=== PATIENT | male | born 1965 | race Caucasian/White ===

== ENCOUNTER 2022-12-09 10:43 | Outpatient (CLI) | payer MEDICARE | END 2022-12-09 10:44 | disposition home or self-care (01) | LOC: SCSMRI 10:43 | PROVIDERS: ATTEND Nurse Anesthetist, Certified Registered | DX: M47.26 Other spondylosis with radiculopathy, lumbar region (principal); M43.16 Spondylolisthesis, lumbar region; M48.061 Spinal stenosis, lumbar region without neurogenic claudication | CPT/HCPCS: 72148 ==

== ENCOUNTER 2024-02-02 09:00 | Inpatient (IN) | payer MEDICARE ==
[2024-03-01] MEDS ORDERED: Albumin 5% 500 ML ONE (06:05)
[2024-03-01] MEDS ORDERED: Vancomycin 1 GM VIAL ONE (06:08)
[2024-03-01] MEDS ORDERED: EPINEPHrine 1 MG/ML VIAL ONE (06:08)
[2024-03-01] MEDS ORDERED: Bupivacaine PF 0.5% 30 ML VIAL ONE (06:09)
[2024-03-01] MEDS ORDERED: Thrombin 5000 UNITS/5 ML VIAL ONE (06:09)
[2024-03-01] MEDS ORDERED: Fentanyl 250 MCG/5 ML VIAL ONE (06:19)
[2024-03-01] MEDS ORDERED: KETAMINE 100 MG/ML (5ML VIAL) ONE (06:19)
[2024-03-01] MEDS ORDERED: Rocuronium Bromide 10 MG/ML (10ML VIAL) ONE (06:19)
[2024-03-01] MEDS ORDERED: PROPOFOL 20 ML ONE (06:19)
[2024-03-01] MEDS ORDERED: Lidocaine 1% PF 5 ML VIAL ONE (06:19)
[2024-03-01] MEDS ORDERED: Ondansetron PF 4 MG/2 ML Vial IVP PRN (06:40)
[2024-03-01] MEDS ORDERED: diphenhydrAMINE 50 MG/ML VIAL IVP PRN (06:40)
[2024-03-01] MEDS ORDERED: CEFAZOLIN 2 GM VIAL ONE (06:50)
[2024-03-01] MEDS ORDERED: Dexamethasone 20 MG/5 ML VIAL ONE (08:04)
[2024-03-01] MEDS ORDERED: Vecuronium 10 MG VIAL ONE ×2 (08:12→09:51)
[2024-03-01] MEDS ORDERED: PHENYLEPHRINE-NS 100 MCG/ML 10 ML SYRINGE ONE (08:30)
[2024-03-01] MEDS ORDERED: ePHEDrine Sulfate 50 MG/10 ML VIAL ONE (08:42)
[2024-03-01] MEDS ORDERED: CEFAZOLIN 1 GM VIAL ONE (10:24)
[2024-03-01] MEDS ORDERED: Ondansetron PF 4 MG/2 ML Vial ONE (12:00)
[2024-03-01] MEDS ORDERED: Promethazine HCl 25 MG/ML VIAL IM PRN (12:05)
[2024-03-01] MEDS ORDERED: HYDROmorphone 2 MG/ML VIAL SLOW IVP PRN (12:05)
[2024-03-01] MEDS ORDERED: PACU-Morphine 4MG/ML VIAL SLOW IVP PRN (12:05)
[2024-03-01] MEDS ORDERED: Ondansetron HCl/PF 4 MG/2 ML Vial IVP PRN (12:05)
[2024-03-01] MEDS ORDERED: Morphine Sulfate 2 MG/ML SYRINGE SLOW IVP PRN (12:05)
[2024-03-01] MEDS ORDERED: SUGAMMADEX SODIUM 200 MG/2 ML VIAL ONE (12:14)
[2024-03-01] MEDS ORDERED: Labetalol HCl 100 MG/20 ML VIAL ONE (12:21)
[2024-03-01] MEDS ORDERED: fentaNYL 50 mcg/mL 1 mL Vial ONE ×4 (12:55→14:13)
[2024-03-01] MEDS: Morphine 2 MG/ML VIAL SLOW IVP PRN (15:50)
[2024-03-01] MEDS: tiZANidine HCl 4 MG TAB PO PRN (15:58)
[2024-03-01] MEDS: HYDROcodone/Acetaminophen 10/325 mg Tablet PO PRN (15:58)
[2024-03-01] MEDS: CEFAZOLIN 2 GM in Sodium Chloride 0.9% 100 ML IVPB SCH (15:58)
[2024-03-01] MEDS: HYDROcodone/Acetaminophen 7.5/325 mg Tablet PO PRN (18:19)
[2024-03-01] MEDS: Pantoprazole 40 MG DR.TAB PO SCH (18:47)
[2024-03-01] MEDS: Lisinopril 20 MG TAB PO SCH (18:47)
[2024-03-01] MEDS: Atorvastatin Calcium 40 MG TAB PO SCH (18:47)
[2024-03-01] MEDS: Sodium Chloride 0.9% 1,000 ML IV SCH (18:47)
[2024-03-01] MEDS: Terbinafine 250 MG TAB PO SCH (18:48)
[2024-03-01 18:52] VITALS: BMI 32.1
[2024-03-01] MEDS: Pramipexole Di-HCl 1 MG TAB PO SCH (20:07)
[2024-03-01] MEDS: QUEtiapine 200 MG TAB PO SCH (20:08)
[2024-03-01] MEDS: traZODone HCl 150 MG TAB PO PRN (23:39)
[2024-03-02] MEDS: Levothyroxine Sodium 50 MCG TAB PO SCH (04:28)
[2024-03-02] MEDS: Tamsulosin HCl 0.4 MG CAP PO SCH (04:29)
[2024-03-02 05:18] LABS: #Basophils 0.03 10x3/uL (0.0-0.2); #Eosinophils Less than 0.03 10x3/uL (0.0-0.7); %Basophils 0.2 % (0.0-1.0); %Eosinophils 0.1 % (0.0-10.0); %Lymphocytes 15.9 % (21.0-51.0); %Monocytes 10.1 % (0.0-10.0); Hematocrit 34.7 % (42.0-52.0); Hemoglobin 11.4 g/dL (14.0-18.0); Mean Corpuscular HGB CONC 32.9 g/dL (32.0-36.0); Mean Corpuscular Volume 85.3 fL (78.0-98.0); Mean Platelet Volume 10.1 fL (7.4-10.4); Platelet Count 190 10x3/uL (130-400); RBC Distribution Width 12.9 % (11.5-14.5); Red Blood Cell (RBC) Count 4.07 mill/uL (4.70-6.10)
[2024-03-02 05:44] LABS: Anion Gap 10 mmol/L (10-20); BUN (Urea Nitrogen) 19 mg/dL (8.4-25.7); Calc. Creatinine Clearance 161 mL/min (70-130); Calcium 7.8 mg/dL (7.8-10.44); Carbon Dioxide 27 mmol/L (22-29); Chloride 106 mmol/L (98-107); Estimated GFR 102; Glucose 151 mg/dL (70-105); Potassium 3.9 mmol/L (3.5-5.1); Sodium 139 mmol/L (136-145)
[2024-03-02] MEDS: Mag-Al 1200 mg/1200 mg/30 ML UDCUP PO PRN (10:23)
[2024-03-02] MEDS: Milk Of Magnesia 30 ML UDCUP PO PRN (16:08)
[2024-03-03] MEDS: Acetaminophen/Codeine 30-300mg Tablet PO PRN (09:11)
[2024-03-05 07:59] VITALS: TEMP 98.1
[2024-03-05 11:39] VITALS: BP 131/88
== END 2024-03-05 13:38 | disposition home or self-care (01) | DRG 402 ==
LOC: SURG A 03-01 05:28 → SURG B 03-01 15:29
PROVIDERS: ADMIT Neurological Surgery; ATTEND Neurological Surgery
PROC: 0SG00AJ Fusion of Lumbar Vertebral Joint with Interbody Fusion Device, Posterior Approach, Anterior Column, Open Approach (ICD-10-PCS; principal; 2024-03-01)
PROC: 0SG0071 Fusion of Lumbar Vertebral Joint with Autologous Tissue Substitute, Posterior Approach, Posterior Column, Open Approach (ICD-10-PCS; 2024-03-01)
PROC: 01NB0ZZ Release Lumbar Nerve, Open Approach (ICD-10-PCS; 2024-03-01)
PROC: 0SB20ZZ Excision of Lumbar Vertebral Disc, Open Approach (ICD-10-PCS; 2024-03-01)
PROC: 3E033XZ Introduction of Vasopressor into Peripheral Vein, Percutaneous Approach (ICD-10-PCS; 2024-03-01)
PROC: 30233J1 Transfusion of Nonautologous Serum Albumin into Peripheral Vein, Percutaneous Approach (ICD-10-PCS; 2024-03-01)
DX: M48.062 Spinal stenosis, lumbar region with neurogenic claudication (principal); M43.16 Spondylolisthesis, lumbar region; F41.9 Anxiety disorder, unspecified; M19.90 Unspecified osteoarthritis, unspecified site; E78.5 Hyperlipidemia, unspecified; I10 Essential (primary) hypertension; Z87.891 Personal history of nicotine dependence; Z79.899 Other long term (current) drug therapy; M62.830 Muscle spasm of back
CPT/HCPCS: 36415; 80048; 85025; A4314; A6258; C1713; C1889; J0171; J0665; J0690; J1100; J2272; J2405; J2704; J3010; J3370; J7030; P9045

== ENCOUNTER 2024-02-29 10:05 | Outpatient (CLI) | payer MEDICARE ==
[2024-02-29 12:09] LABS: Anion Gap 14 mmol/L (10-20); BUN (Urea Nitrogen) 14 mg/dL (8.4-25.7); Calc. Creatinine Clearance 0 mL/min (70-130); Calcium 9.3 mg/dL (7.8-10.44); Carbon Dioxide 25 mmol/L (22-29); Chloride 107 mmol/L (98-107); Estimated GFR 85; Glucose 127 mg/dL (70-105); Potassium 4.3 mmol/L (3.5-5.1); Sodium 142 mmol/L (136-145)
== END 2024-02-29 10:06 | disposition home or self-care (01) ==
LOC: LABBT 10:05
PROVIDERS: ATTEND Neurological Surgery
DX: Z01.818 Encounter for other preprocedural examination (principal); M43.16 Spondylolisthesis, lumbar region; M48.062 Spinal stenosis, lumbar region with neurogenic claudication
CPT/HCPCS: 80048; 93005; 93010